=== PATIENT | female | born 1965 | race Caucasian/White ===

== ENCOUNTER 2016-10-25 23:08 | Emergency (ER) | payer MEDICARE, OTHER ==
[2016-10-25 23:41] LABS: BASOPHILS % 0.8 (0.0-1.5); EOSINOPHILS % 2.1 % (0.0-6.8); MEAN CORPUSCULAR HEMOGLOBIN 33.1 pg (28.0-34.0); MEAN CORPUSCULAR VOLUME 97.6 fl (80.0-100.0); MONOCYTES % 4.7 % (0.0-11.0); NEUTROPHILS # 4.7 # k/uL (1.4-7.7)
[2016-10-25] MEDS ORDERED: 0.9 % SODIUM CHLORIDE 1,000 ML IV ONE (23:47)
[2016-10-25 23:53] LABS: eGFR (African) > 60; eGFR (Non-African) > 60
[2016-10-25] MEDS: KETOROLAC TROMETHAMINE 30 MG/1ML VIAL IVP ONE (23:54)
[2016-10-25] MEDS: 0.9 % SODIUM CHLORIDE 1,000 ML IV SCH (23:54)
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
[2016-10-26 00:51] VITALS: BP 116/63
--- NOTE | 2016-10-26 04:37 | Diagnostic Imaging Report ---
MOODY BRAMBILA~ [facility] [address] [address] ~ ~ ~ ~ Report Submission Date: Oct 25, 2016 11:41:43 PM CDT Patient ~ Study Name: ASHLEY CHAND ~ Date: Oct 25, 2016 11:28:07 PM CDT ~ Modality Type: CR Gender: F ~ Description: CHEST : 69 ~ Institution: [facility] Physician: MOODY BRAMBILA ~ ~ ~ ~ Chest, 1 view History: CHEST PAIN X 4 HR Findings: The heart size is normal. The lungs are clear. There is no pleural effusion or pneumothorax identified. The osseous structures are normal. Impression: 1. No acute pulmonary disease. ~ Electronically signed on Oct 25, 2016 11:41:43 PM CDT by: Goran SANDERS
[2016-10-26 05:14] LABS: APPEARANCE,URINE CLOUDY (CLEAR); COLOR,URINE YELLOW (YELLOW); OCCULT BLOOD,URINE NEGATIVE (NEGATIVE); UROBILINOGEN URINE 0.2 Eu (0.2-1.0)
== END 2016-10-26 00:30 | disposition home or self-care (01) ==
LOC: ED 23:08
DX: M94.0 Chondrocostal junction syndrome [Tietze] (principal); R07.9 Chest pain, unspecified
CPT/HCPCS: 71010; 80053; 81002; 84484; 85025; 93005; J1885; J7030; 96361; 96374; 99283

== ENCOUNTER 2016-11-21 11:13 | Emergency (ER) | payer MEDICARE, OTHER ==
[2016-11-21 12:17] LABS: BASOPHILS % 1.2 (0.0-1.5); EOSINOPHILS % 3.1 % (0.0-6.8); MEAN CORPUSCULAR HEMOGLOBIN 32.9 pg (28.0-34.0); MEAN CORPUSCULAR VOLUME 97.1 fl (80.0-100.0); MONOCYTES % 5.7 % (0.0-11.0); NEUTROPHILS # 5.2 # k/uL (1.4-7.7)
[2016-11-21 12:36] LABS: eGFR (African) > 60; eGFR (Non-African) > 60
--- NOTE | 2016-11-21 12:47 | ED Physician Documentation ---
Dyspnea - HPI Stated Complaint: "Short of Breath" Chief Complaint: Dyspnea Additional Information: she was here last week for same. They ruled out cardiopulmonary and gave her dx of costochondritis. She still says the achy pain increases with deep inspiration. She says the pain is achy/squeezing all the way around her chest. she saw her PCP and they rold her they were worried about "blood clots". She has no other symptoms besides pain. Onset: days ago Duration: continues in ED Initiating Event: denies: upper respiratory illness, out of meds, exposure to smoke Severity: mild Exacerbated By: nothing Associated Symptoms: none - ROS CONST: no problems EYES/ENT: none GI/: none NEURO/PSYCH: denies: headache MS/SKIN/LYMPH: none - PAST HX Lung Disease: none, other (smoker) Cardiac Disease: none PE Risk Factors: none Surgeries/Procedures: none Other History: none Allergies/Adverse Reactions: Allergies Allergy/AdvReac Type Severity Reaction Status Date / Time Sulfa (Sulfonamide Allergy Verified 11/21/16 11:22 Antibiotics) Home Medications: Ambulatory Orders Medication Instructions Recorded Levothyroxine Sodium [Synthroid] 150 mcg PO D 10/25/16 - SOCIAL HX Smoking History: cigarettes Alcohol Use: occasionally Drug Use: none - FAMILY HX Family History: none - VITAL SIGNS Vital Signs: Vital Signs Temp Pulse Resp BP Pulse Ox 97.8 F 64 18 130/70 98 11/21/16 11:15 11/21/16 11:15 11/21/16 11:15 11/21/16 11:15 11/21/16 11:15 - REVIEWED ASSESSMENTS Nursing Assessment Reviewed: Yes Vitals Reviewed: Yes Progress - Progress Progress: she was worried about "blood clots" her D-Dimer was normal ED Results Lab/Radiology - Orders Orders: ED Orders Category Date Time Status ARTERIAL BLOOD GAS Stat Lab 11/21/16 Uncollected CBC/PLATELET/DIFF Routine Lab 11/21/16 Ordered CMP Routine Lab 11/21/16 Ordered D DIMER Stat Lab 11/21/16 Ordered EKG WITH COMPARISON Stat Ther 11/21/16 Ordered Dyspnea Physical Exam - EXAM General Appearance: no acute distress, alert EENT: eye inspection normal, ENT inspection normal, no signs of dehydration Neck: nml inspection. No: lymphadenopathy Respiratory: no resp. distress, breath sounds nml, chest wall tenderness. No: no pain on inspiration, wheezes, rales, rhonchi CVS: reg. rate & rhythm, no murmur, pulses full Abdomen: non-tender, no distention Skin: color nml, no rash Extremities: non-tender, normal range of motion, no evidence of injury, no edema Neuro/Psych: oriented x3, mood/affect nml Discharge Clincal Impression: Bradycardia, Costochondritis Referrals: Primary Doctor,No [Primary Care Provider] - 2 Days Home Medications: Ambulatory Orders Levothyroxine Sodium [Synthroid] 150 mcg PO D 10/25/16 Condition: Good Disposition: 01 HOME, SELF-CARE Decision to Admit: NO Date of Decison to Admit: 11/21/16 Decision Time: 12:45
[2016-11-21 12:57] VITALS: BP 120/68
[2016-11-24 06:39] LABS: ABG PH 7.47 (7.35-7.45)
[2016-11-24 06:40] LABS: ABG BASE EXCESS 1.4 (-2 - +2)
== END 2016-11-21 12:55 | disposition home or self-care (01) ==
LOC: ED 11:13
DX: R00.1 Bradycardia, unspecified (principal); M94.0 Chondrocostal junction syndrome [Tietze]
CPT/HCPCS: 36600; 80053; 82803; 85025; 85379; 99283; S1016

== ENCOUNTER 2016-12-10 07:36 | Emergency (ER) | payer MEDICARE, OTHER ==
[2016-12-10] MEDS ORDERED: KETOROLAC TROMETHAMINE 60 MG/2 ML VIAL IM ONE (08:29)
--- NOTE | 2016-12-10 08:57 | ED Physician Documentation ---
Chest Pain - HISTORIAN Historian: patient - HPI Stated Complaint: back/chest pain Chief Complaint: Chest Pain Additional Information: pt co lt parasternal chest pain onset several days ago-she thinks assoc w/back pain corresponding area. she has been seen here 2 times recently w/dx costochondritis is taking aleve w/o sig success. nakul does fair amt lifting at her work. pain is worse w/deep breath and certain movements. there is no radiation except to the back Timing: gradual onset, still present Duration: waxing, waning Last known Well Date: 09/19/16 Last Known Well Time: 12:00 Last known Well Code/Unknown Code: Known (actually the time is non specific approx 2 mo ago but this recore requires specific time and date) Context: activity, exertion Severity: moderate Quality: pressure, burning, dull, sharp (with palp pressure juan josé rt and lt plaraspinal areas and assoc back area) Chest Pain Signs/Symptoms: denies: nausea, vomiting Worsened By: deep breaths, movement, change in position Relieved By: other (the aleve helps somewhat but still persists) - ROS CONST: denies: recent injury MS/LYMPH: back pain GI/: none SKIN/ENDO: none NEURO/PSYCH: none - PAST HX [place] risk factors: other (lo thryoid old cva) GI disease: none Lung disease: none Surgeries/Procedures: other (c sect later exploratory w/adhesions) Allergies/Adverse Reactions: Allergies Allergy/AdvReac Type Severity Reaction Status Date / Time Sulfa (Sulfonamide Allergy Verified 12/10/16 07:52 Antibiotics) Home Medications: Ambulatory Orders Medication Instructions Recorded Levothyroxine Sodium [Synthroid] 150 mcg PO D 10/25/16 - SOCIAL HX Smoking History: greater than 1 pack/day Alcohol Use: none Drug Use: none - FAMILY HX Family HX: none - VITAL SIGNS Vital Signs: Vital Signs Temp Pulse Resp BP Pulse Ox 97.9 F 63 16 111/65 98 12/10/16 07:46 12/10/16 07:46 12/10/16 07:46 12/10/16 07:46 12/10/16 07:46 - REVIEWED ASSESSMENTS Nursing Assessment Reviewed: Yes Vitals Reviewed: Yes ED Results Lab/Radiology - Radiology Radiology Impressions: cxr = wnt back = adv djd - Orders Orders: ED Orders Category Date Time Status CHEST 2 VIEW [CHEST P.A.&LAT 2 VIEWS] [RAD] Stat Exams 12/10/16 Ordered T SPINE 3 VIEWS [RAD] Stat Exams 12/10/16 Ordered Ketorolac Tromethamine [Toradol] Med 12/10/16 08:29 Discontinued 60 mg IM NOW ONE EKG WITH COMPARISON Stat Ther 12/10/16 Ordered Chest Pain Physical Exam - EXAM General Appearance: mild distress EENT: eye inspection normal Neck: nml inspection Respiratory: no resp. distress, nml breath sounds. No: chest non-tender, resp.distress CVS: reg. rate & rhythm Abdomen: soft, non-tender Skin: warm/dry, normal color. No: cyanosis, diaphoresis, jaundice Extremities: non-tender, normal range of motion Neuro: oriented X3. No: motor nml, sensation nml Discharge Clincal Impression: Costochondritis, adv djd Referrals: Yvan Castanon MD [Primary Care Provider] - 2 Days Home Medications: Ambulatory Orders Levothyroxine Sodium [Synthroid] 150 mcg PO D 10/25/16 Comments: home meds f/u w/orthopedics Condition: Good Disposition: 01 HOME, SELF-CARE Decision to Admit: NO Decision Time: 10:08
[2016-12-10 10:14] VITALS: BP 129/70
--- NOTE | 2016-12-10 15:01 | Diagnostic Imaging Report ---
[facility] [address] [facility].[address] [address] Report Submission Date: Dec 10, 2016 9:23:27 AM CDT Patient Study Name: ASHLEY CHAND Date: Dec 10, 2016 8:34:39 AM CDT Modality Type: CR Gender: F Description: CHEST : 69 Institution: [facility] Physician SUSANNA VOSS - JUAN Chest two views PA and lateral CLINICAL HISTORY: Chest and back pain COMPARISON: October 25, 2016 FINDINGS: The lung suárez are clear. There is no mass pleural effusion or hilar enlargement. Bone density appears normal. IMPRESSION: No acute pulmonary disease no significant change from the previous radiographs Electronically signed on Dec 10, 2016 9:23:27 AM CDT by: Fausto SANDERS
--- NOTE | 2016-12-10 15:02 | Diagnostic Imaging Report ---
[facility] [address] [facility].[address] [address] Report Submission Date: Dec 10, 2016 9:20:57 AM CDT Patient Study Name: ASHLEY CHAND Date: Dec 10, 2016 8:37:50 AM CDT Modality Type: CR Gender: F Description: SPINE : 69 Institution: [facility] Physician SUSANNA VOSS - JUAN Thoracic spine three views Clinical history chest and back pain Technique AP lateral swimmer's FINDINGS: Spurs arise from multiple levels. There is no fracture or erosion or paravertebral mass. IMPRESSION: Thoracic spondylosis with no acute thoracic spine pathology Electronically signed on Dec 10, 2016 9:20:57 AM CDT by: Fausto SANDERS
== END 2016-12-10 10:13 | disposition home or self-care (01) ==
LOC: ED 07:36
DX: M94.0 Chondrocostal junction syndrome [Tietze] (principal); M19.90 Unspecified osteoarthritis, unspecified site
CPT/HCPCS: 71020; 72072; 84484; J1885; 96372; 99283